=== PATIENT | male | born 1990 | race African-American/Black ===

== ENCOUNTER 2016-10-30 12:59 | Emergency (ER) | payer SELFPAY ==
[~2016-10-30] VITALS: Ht 170.2 cm; Wt 72.6 kg
[2016-10-30 13:13] VITALS: BP 134/75
[2016-10-30] MEDS ORDERED: PENI500T PO (13:18)
--- NOTE | 2016-10-30 13:18 | PHYS DOC ---
Adult General Chief Complaint Chief Complaint: DENTAL PROBLEM HPI HPI Patient is a 26-year-old male who presents ambulatory to the ED complaining of pain in his left upper teeth since yesterday. He did have a broken tooth for a while now. He has not seen the dentist about it. He did have a tooth extracted on the right upper, a few years ago. Review of Systems Review of Systems Constitutional: Denies fever or chills [] Physical Exam Physical Exam Constitutional: Well developed, well nourished, no acute distress, non-toxic appearance. Alert, mentating normally, warm and dry. HENT: Normocephalic, atraumatic, bilateral external ears normal, oropharynx moist, no oral exudates, dentition in general is good, the left upper first molar is fractured off at the gumline with significant decay noted. There is no purulent drainage or actively swollen gums, no evidence of. Apical abscess. There is mild swelling of the cheek lateral to the affected tooth, no redness. Eyes: conjunctiva normal, no discharge. [] Neck: Normal range of motion, no stridor. [] Skin: Warm, dry, no erythema, no rash. [] Extremities: No tenderness, no cyanosis, no clubbing, ROM intact, no edema. [] Neurologic: Alert and oriented X 3, normal motor function, no focal deficits noted. [] EKG EKG [] Radiology/Procedures Radiology/Procedures [] Course & Med Decision Making Course & Med Decision Making Pertinent Labs and Imaging studies reviewed. (See chart for details) 26-year-old male with dental pain due to a tooth that is fractured and decayed. We will treat him with penicillin and I urged him to follow up with a dentist. [] Dragon Disclaimer Dragon Disclaimer This chart was dictated in whole or in part using Voice Recognition software in a busy, high-work load, and often noisy Emergency Department environment. It may contain unintended and wholly unrecognized errors or omissions. Departure Departure: Impression: Primary Impression: Tooth pain Additional Impressions: Tooth fracture Dental caries Disposition: HOME, SELF-CARE Condition: STABLE Referrals: PCP,NO (PCP) Patient Instructions: Dental Pain, [id number] Additional Instructions: We will start you on penicillin for dental pain and infection. Also take ibuprofen 800 mg (4 of the 200 mg OTC pills) every 6-8 hours as needed for pain. Call today to make a dentist appointment as soon as possible. The only way to get this taken care of this to see a dentist. Scripts Penicillin V Potassium (PENICILLIN V POTASSIUM) 500 Mg Tablet 1 TAB PO TID for dental infection, #30 TAB Prov: SATNAM MINOR MD 10/30/16 Problem Qualifiers SATNAM MINOR MD Oct 30, 2016 13:18
== END 2016-10-30 13:28 | disposition home or self-care (01) ==
LOC: ER 12:59
DX: S02.5XXA Fracture of tooth (traumatic), initial encounter for closed fracture (principal); K02.9 Dental caries, unspecified; X58.XXXA Exposure to other specified factors, initial encounter; Y93.89 Activity, other specified; Y99.8 Other external cause status; Y92.89 Other specified places as the place of occurrence of the external cause
CPT/HCPCS: 99283